=== PATIENT | male | born 1965 | race Caucasian/White ===

== ENCOUNTER 2020-08-29 08:45 | Inpatient (IN) | payer OTHER ==
[2020-08-29 09:30] VITALS: BMI 27.1
[2020-08-29] MEDS ORDERED: ACETAMINOPHEN 325 MG TABLET (FP) PO PRN ×2 (09:46)
[2020-08-29] MEDS ORDERED: BISMUTH SUBSALICYLATE 524 MG/30 ML UD PO PRN (09:46)
[2020-08-29] MEDS ORDERED: MELATONIN 5 MG TABLETS PO PRN ×2 (09:46→22:00)
[2020-08-29] MEDS ORDERED: MAGNESIUM HYDROX 2400MG/30ML ORAL SUSPENSION 30 ML CUP PO PRN (09:46)
[2020-08-29] MEDS ORDERED: hydrOXYzine PAMOATE 25 MG CAPSULE (FP) PO PRN (09:46)
[2020-08-29] MEDS ORDERED: MENTHOL/PHENOL 1 EACH UD MM PRN (09:46)
[2020-08-29] MEDS ORDERED: METHOCARBAMOL 500 MG TABLET PO PRN (09:46)
[2020-08-29] MEDS ORDERED: ONDANSETRON *ODT* 4 MG TABLET SL PRN (09:46)
[2020-08-29] MEDS ORDERED: MAGNESIUM CITRATE 300 ML BOTTLE PO PRN (09:46)
[2020-08-29] MEDS ORDERED: MAG HYDROX/AL HYDROX/SIMETH 30 ML UNIT-DOSE CUP PO PRN (09:46)
[2020-08-29] MEDS ORDERED: IBUPROFEN 400 MG TABLET (FP) PO PRN (09:46)
[2020-08-29] MEDS: PRENATAL VITAMINS W/ FOLIC ACID TABLET (FP) PO SCH (11:09)
[2020-08-29] MEDS ORDERED: METHADONE HCL 10 MG TABLET (FOR DETOX USE ONLY) PO ONE (12:00)
[2020-08-29] MEDS ORDERED: hydrOXYzine PAMOATE 50 MG CAPSULE (FP) PO PRN (13:28)
[2020-08-29] MEDS: cloNIDine HCL 0.1 MG TABLET PO PRN (19:19)
[2020-08-29] MEDS: THIAMINE HCL 100 MG TABLET (FP) PO SCH (22:09)
[2020-08-30] MEDS: cloNIDine HCL 0.1 MG TABLET PO PRN (01:24)
[2020-08-30] MEDS ORDERED: P-EPHED 60MG/TRIPROLIDI 2.5MG TABLET PO PRN (09:38)
[2020-08-30] MEDS ORDERED: METHADONE HCL 5 MG TABLET (FOR DETOX USE ONLY) ONE (09:39)
[2020-08-30] MEDS ORDERED: METHADONE HCL 10 MG TABLET (FOR DETOX USE ONLY) ONE (09:39)
[2020-08-30] MEDS ORDERED: METHADONE (DETOX) 20 MG, METHADONE (DETOX) 5 MG PO ONE (10:00)
[2020-08-30] MEDS: SODIUM CHLORIDE NASAL SPRAY 44 ML BOTTLE NS PRN (10:12)
[2020-08-30] MEDS: diazePAM 5 MG TABLET PO PRN ×2 (10:13→19:12)
[2020-08-30] MEDS: PRENATAL VITAMINS W/ FOLIC ACID TABLET (FP) PO SCH (10:14)
[2020-08-30 10:17] LABS: HEMATOCRIT 37.3 % (35.4-49); HEMOGLOBIN 12.6 GM/dL (11.7-16.9); MCH 28.1 pg (25.7-33.7); MCHC 33.6 g/dl (32.0-35.9); MEAN CELL VOLUME 83.5 fl (80-96); PLATELET COUNT 192 K/MM3 (134-434); POTASSIUM 3.7 mmol/L (3.5-5.1); RBC 4.47 M/mm3 (4.00-5.60); WHITE BLOOD COUNT 5.9 K/mm3 (4.0-10.0)
[2020-08-30 10:19] LABS: ALBUMIN 3.6 g/dl (3.4-5.0); CALCIUM 9.1 mg/dL (8.5-10.1)
[2020-08-30 10:23] LABS: CREATININE 1.1 mg/dL (0.55-1.3)
[2020-08-30 10:24] LABS: BILIRUBIN,TOTAL 0.5 mg/dL (0.2-1); TOT PROT 7.2 g/dl (6.4-8.2)
[2020-08-30 11:15] LABS: HIV INTERPRETATION NEGATIVE (NEGATIVE)
[2020-08-30] MEDS: THIAMINE HCL 100 MG TABLET (FP) PO SCH (22:22)
[2020-08-31] MEDS ORDERED: METHADONE HCL 10 MG TABLET (FOR DETOX USE ONLY) PO ONE (10:00)
[2020-08-31] MEDS: PRENATAL VITAMINS W/ FOLIC ACID TABLET (FP) PO SCH (10:32)
[2020-08-31] MEDS: diazePAM 5 MG TABLET PO PRN (12:03)
[2020-08-31] MEDS: SODIUM CHLORIDE NASAL SPRAY 44 ML BOTTLE NS PRN (12:03)
[2020-08-31] MEDS: traZODone HCL 50 MG TABLET (FP) PO SCH (22:11)
[2020-08-31] MEDS: THIAMINE HCL 100 MG TABLET (FP) PO SCH (22:12)
[2020-09-01] MEDS ORDERED: METHADONE HCL 10 MG TABLET (FOR DETOX USE ONLY) ONE (09:34)
[2020-09-01] MEDS ORDERED: METHADONE HCL 5 MG TABLET (FOR DETOX USE ONLY) ONE (09:34)
[2020-09-01] MEDS ORDERED: METHADONE (DETOX) 10 MG, METHADONE (DETOX) 5 MG PO ONE (10:00)
[2020-09-01] MEDS: PRENATAL VITAMINS W/ FOLIC ACID TABLET (FP) PO SCH (10:09)
[2020-09-01] MEDS: diazePAM 5 MG TABLET PO PRN (13:05)
[2020-09-01] MEDS: THIAMINE HCL 100 MG TABLET (FP) PO SCH (22:07)
[2020-09-01] MEDS: traZODone HCL 50 MG TABLET (FP) PO SCH (22:07)
[2020-09-02] MEDS: diazePAM 5 MG TABLET PO PRN (05:39)
[2020-09-02] MEDS: PRENATAL VITAMINS W/ FOLIC ACID TABLET (FP) PO SCH (09:11)
[2020-09-02 09:27] VITALS: BP 122/68; PULSE 89; TEMP 98.4
[2020-09-02] MEDS ORDERED: METHADONE HCL 10 MG TABLET (FOR DETOX USE ONLY) PO ONE (10:00)
[2020-09-03] MEDS ORDERED: METHADONE HCL 5 MG TABLET (FOR DETOX USE ONLY) PO ONE (06:00)
== END 2020-09-02 10:10 | disposition home or self-care (01) | DRG 773 ==
LOC: YASAS 08:45 → Y6N 09:36
PROVIDERS: ADMIT Allergy & Immunology; ATTEND Allergy & Immunology
PROC: HZ2ZZZZ Detoxification Services for Substance Abuse Treatment (ICD-10-PCS; principal; 2020-08-29)
DX: F11.23 Opioid dependence with withdrawal (principal); F14.21 Cocaine dependence, in remission; F17.211 Nicotine dependence, cigarettes, in remission; F19.280 Other psychoactive substance dependence with psychoactive substance-induced anxiety disorder; F19.282 Other psychoactive substance dependence with psychoactive substance-induced sleep disorder; Z62.810 Personal history of physical and sexual abuse in childhood; Z87.820 Personal history of traumatic brain injury; Z86.19 Personal history of other infectious and parasitic diseases; Z59.0 Homelessness
CPT/HCPCS: 36415; 80053; 85027; 86780; 87389; C9803; J0735; U0003